=== PATIENT | male | born 1965 | race Caucasian/White ===

== ENCOUNTER → 2017-10-24 | Outpatient (CLI) | payer MEDICARE | END | disposition home or self-care (01) | LOC: KCIC CT 10:02 | DX: M48.56XA Collapsed vertebra, not elsewhere classified, lumbar region, initial encounter for fracture (principal); M48.061 Spinal stenosis, lumbar region without neurogenic claudication; M47.896 Other spondylosis, lumbar region; F32.9 Major depressive disorder, single episode, unspecified; M41.86 Other forms of scoliosis, lumbar region; M51.44 Schmorl's nodes, thoracic region; M25.78 Osteophyte, vertebrae | CPT/HCPCS: 72131 ==